=== PATIENT | female | born 2000 | race Caucasian/White ===

== ENCOUNTER 2023-07-23 03:48 | Observation (INO) | payer BC, SELFPAY ==
[2023-07-22 19:14] VITALS: BP 127/63
[2023-07-22 19:38] VITALS: BMI 24.8
[2023-07-22 20:28] LABS: % Basophils 0.7 % (0-2); % Eosinophils 1.7 % (0-6); % Immature Granulocytes 0.3 % (0-0.5); % Lymphocytes 20.7 % (20.5-51.1); % Monocytes 6.6 % (1.7-9.3); Absolute Basophils 0.1 10^3/uL (0-0.2); Absolute Eosinophils 0.2 10^3/uL (0-0.7); Absolute Lymphocytes 1.8 10^3/uL (1.2-3.4); Absolute Monocytes 0.6 10^3/uL (0.1-0.6); Absolute Neutrophils 6.1 10^3/uL (1.4-6.5); Hematocrit 42.5 % (37.0-47.0); Mean Corp Hgb Conc. 35.3 g/dL (33.0-37.0); Mean Corpuscular Hgb 30.4 pg (27.0-31.0); Mean Platelet Volume 9.7 fL (7.4-10.4); Nucleated Red Blood Cells % 0 %; Platelet Count 262 10^3/uL (130-400); Red Blood Cell Count 4.94 10^6/uL (4.20-5.40); Red Cell Dist. Width 12.7 % (11.5-14.5); White Blood Cell Count 8.7 10^3/uL (4.8-10.8)
[2023-07-22 20:28] LABS: Urine Albumin Negative (Neg - Trace); Urine Bilirubin Negative (Negative); Urine Character Clear (Clear); Urine Color Yellow; Urine Glucose Negative (Negative); Urine Ketone 1+ (Negative); Urine Leukocyte Negative (Negative); Urine Nitrite Negative (Negative); Urine Occult Blood Negative (Negative); Urine Specific Gravity 1.015 (<1.030); Urine Urobilinogen Negative (Neg - 1+)
--- NOTE | 2023-07-22 20:28 | ED.GENMED ---
History of Present Illness
<PHILIP Mancilla - Last Filed: 07/23/23 03:20>
General
Chief Complaint: Abdominal Symptoms
Source: patient
Exam Limitations: none
Time Seen by Provider: 07/22/23 20:02
Travel History
Have you had any contact with someone who has COVID-19?: No
Do you have any symptoms of coronavirus? Fever > 100 degrees, chills, cough, shortness of breath, sore throat, loss of taste or smell, muscle aches, or headache?: No
History of Present Illness
History of Present Illness:
This is a 23 year old female that comes in with c/o lower abd pain. States that about a half hour before she arrived at the ER she started with this cramping pain in the lower abd. States that she couldn't walk and stand up straight. State that the
pain is also in the low back. State that the pain is on the right lower abd. States that she did a home test yesterday and this was positive. State that her last Menstrual cycle was the week of June 11. State that she was a little
nauseated with the pain. States that she does have some pressure when she urinates. Denies any fever, chills, chest pain, SOB, vomiting, diarrhea, headache, dizziness.
Past History
<PHILIP Mancilla - Last Filed: 07/23/23 03:20>
Past History
ED Past Medical History: Other (Ovarian cyst)
ED Past Surgical History: Orthopedic (Left arm surgery)
Social History
Tobacco: Non-smoker
Alcohol: Occasional
Personal: Single
Living: with family
Review of Systems
<PHILIP Mancilla - Last Filed: 07/23/23 03:20>
Review of Systems
All Other Systems: ROS reviewed and negative except as documented in HPI and ROS
Constitutional: Reports no symptoms; Denies fever or chills
EENT: Reports no symptoms
Respiratory: Reports no symptoms; Denies cough or trouble breathing
Cardiac: Reports no symptoms; Denies chest pain
ABD/GI: Reports abdominal pain and nausea; Denies vomiting or diarrhea
: Reports other (Pressure with urination); Denies frequency or flank pain
Musculoskeletal: Reports no symptoms
Skin: Reports no symptoms
Neurological: Reports no symptoms; Denies dizzy or headache
Psychiatric: Reports no symptoms
Phy Exam
<PHILIP Mancilla - Last Filed: 07/23/23 03:20>
General Physical Exam
General Presentation: well appearing and no apparent distress
General age: appears stated age
General Skin: warm and dry
General Habitus: normal
General Mental: alert
General Hydration: appears well hydrated
ENT Exam
ENT Exam: TM's normal, pharynx normal and neck supple
Eye Exam
Eye Exam: EOMI
Cardiovascular Exam
Cardiovascular Exam: regular rate/rhythm, no edema, no murmur and normal peripheral pulses
Pulmonary Exam
Pulmonary Exam: lungs clear, no respiratory distress, no rales, chest non tender, no crackles, no rhonchi, no wheezing and no cough
Gastrointestinal Exam
Gastrointestinal Exam: normal bowel sounds, soft, no organomegaly, no pulsatile mass, non distended and tender (Right Lower abd tenderness with palpation)
Musculoskeletal Exam
Musculoskeletal Exam: full ROM and no edema
Skin Exam
Skin Exam: normal color, warm/dry, no rash and no petechia
Psychiatric Exam
Psychiatric Exam: normal mood/affect
Course
<PHILIP Mancilla - Last Filed: 07/23/23 03:20>
Orders/Labs/Results
Orders:
Orders
07/22/23 20:06
Beta HCG Quantitative Urgent
Is this a screen?: No
Complete Blood Count/With Diff Urgent
Comprehensive Metabolic Panel Urgent
07/22/23 20:17
Urinalysis Reflex To Culture Urgent
Date Specimen was Collected: 07/22/23
Time Specimen was Collected: 20:16
07/22/23 20:27
0.9% Sodium Chloride 1000 ml [Nss] 1,000 ml IV BOLUS
US Abdomen - Appendix Only Urgent
Comment:
Reason For Exam: right lower abd pain
US W Transvaginal Urgent
Comment: last Mentral cycle June 11
Reason For Exam: right lower abd pain
07/22/23 22:48
Blood Group&Type Urgent
07/22/23 23:12
Morphine Sulfate 2 mg IV NOW STA
07/22/23 23:19
CeFAZolin 2 GRAM [Ancef] 2 grams in 10 ml IV PRE PROCEDURE
07/22/23 23:20
Compression Sleeves [Pneumatic Compression Sleeves] As Directed
Type: Knee high
07/22/23 23:21
DX Deep Vein Thrombosis Video Routine
07/22/23 23:24
Dexamethasone Sod Phosphate [Decadron] 20 mg .ROUTE .STK-MED ONE
Fentanyl Citrate/Pf [Sublimaze] 100 mcg .ROUTE .STK-MED ONE
Lidocaine 2% Mpf [Xylocaine Mpf 2%] 100 mg .ROUTE .STK-MED ONE
Midazolam HCl [Versed] 2 mg .ROUTE .STK-MED ONE
Ondansetron Injectable [Zofran] 4 mg .ROUTE .STK-MED ONE
Propofol [Diprivan] 20 ml .ROUTE .STK-MED
Rocuronium [place] [Rocuronium] 50 mg .ROUTE .STK-MED ONE
07/22/23 23:35
HYDROmorphone [Dilaudid] 0.25 mg IV PACU-Q5MPRN PRN
HYDROmorphone [Dilaudid] 0.5 mg IV PACU-Q5MPRN PRN
Meperidine [Demerol] 12.5 mg IV PACU-Q5MPRN PRN
Ondansetron Injectable [Zofran] 4 mg IV PACU-ONCEPRN PRN
Prochlorperazine [Compazine] 5 mg IV PACU-ONCEPRN PRN
Notify MD As Directed
Notify physician if: for SDS patients with known or suspected sleep obstructive sleep apnea, monitor in the
PACU.
Notify MD for any apneic/desaturation episodes
O2 Therapy [RESP] Urgent
Titrate/Wean O2 to maintain O2 sat greater than (%): 92
Special Instructions: -Provide supplemental oxygen to achieve O2 sat of 92% or greater.
-After 15 min, may wean O2 and discontinue if patient is able to maintain O2 sat of 92%
or greater during recovery period.
If patient is a discharge home, without oxygen therapy, notify anestheiologist if
unable to maintain O2 SAT of 92% or greater on room air for MD clearance.
07/22/23 23:45
Normosol (Mult Electrolytes) [Normosol-R] 1,000 ml IV PER PROTOCOL
07/23/23 00:07
Bupivacaine Pf 0.5% [Sensorcaine 0.5% Single Dose] 30 ml .ROUTE .STK-MED ONE
07/23/23 01:00
Phenylephrine HCl/0.9% NaCl [Giorgio-Synephrine] 1,000 mcg .ROUTE .STK-MED ONE
07/23/23 01:10
HYDROmorphone [Dilaudid] 1 mg .ROUTE .STK-MED ONE
07/23/23 02:04
Sugammadex Sodium [Bridion] 200 mg .ROUTE .STK-MED ONE
07/23/23 02:10
OR Pathology Routine
Pre-Operative Diagnosis: ABDOMINAL PAIN, SUSPECTED ECTOPIC
Operative Procedure: Diagnostic Laparoscopy, Cauterization of Ruptured Ovarian Cyst
Surgeon: Ana Cristina
Circulating Nurse: Mikhail
Specimen Type: Contents of Ruptured Right Ovarian Cyst, Possible POC
07/23/23 02:59
Admit Patient As Directed
Co-Sign Provider:
Level of Care: Observation services
Assign to:: Medical/Surgical
Physician / Group: [facility] [employer] EQUIPMENT OPERATOR
Diagnosis: s/p LPS for ruptured hemorrhagic cyst
Patient Condition: Good
Reason for Hospitalization: surgery
Oxycodone/Acetaminophen [Percocet 5/325] 1 tablet PO Q4HPRN PRN
07/23/23 03:00
Activity As Directed
Activity Level: Ambulate
Bathroom Privileges
Activity Frequency: Ad Fidelina
07/23/23 Breakfast
Regular
Abnormal Lab Results
07/22/23 07/22/23
20:06 20:17
Sodium 134 L mmol/L
(135-145)
Urine Ketones 1+ A
(Negative)
07/22/23 20:06
07/22/23 20:06
Labs unremarkable. HCG 2061.10, Urine negative for infection.
Vital Signs
Initial and Last Documented VS:
Initial Vital Signs
Temp Pulse Resp BP Pulse Ox
98.1 F 93 18 127/63 99
07/22/23 19:14 07/22/23 19:14 07/22/23 19:14 07/22/23 19:14 07/22/23 19:14
Last Documented Vital Signs
Temp Pulse Resp BP Pulse Ox
99.3 F 88 17 119/56 100
07/23/23 02:40 07/23/23 02:55 07/23/23 02:55 07/23/23 02:55 07/23/23 03:10
ovidio;Manjinder Tovar DO - Last Filed: 07/23/23 00:24>
Orders/Labs/Results
Orders:
Orders
07/22/23 20:06
Beta HCG Quantitative Urgent
Is this a screen?: No
Complete Blood Count/With Diff Urgent
Comprehensive Metabolic Panel Urgent
07/22/23 20:17
Urinalysis Reflex To Culture Urgent
Date Specimen was Collected: 07/22/23
Time Specimen was Collected: 20:16
07/22/23 20:27
0.9% Sodium Chloride 1000 ml [Nss] 1,000 ml IV BOLUS
US Abdomen - Appendix Only Urgent
Comment:
Reason For Exam: right lower abd pain
US W Transvaginal Urgent
Comment: last Mentral cycle June 11
Reason For Exam: right lower abd pain
07/22/23 22:48
Blood Group&Type Urgent
07/22/23 23:12
Morphine Sulfate 2 mg IV NOW STA
07/22/23 23:19
CeFAZolin 2 GRAM [Ancef] 2 grams in 10 ml IV PRE PROCEDURE
07/22/23 23:20
Compression Sleeves [Pneumatic Compression Sleeves] As Directed
Type: Knee high
07/22/23 23:21
DX Deep Vein Thrombosis Video Routine
07/22/23 23:24
Dexamethasone Sod Phosphate [Decadron] 20 mg .ROUTE .STK-MED ONE
Fentanyl Citrate/Pf [Sublimaze] 100 mcg .ROUTE .STK-MED ONE
Lidocaine 2% Mpf [Xylocaine Mpf 2%] 100 mg .ROUTE .STK-MED ONE
Midazolam HCl [Versed] 2 mg .ROUTE .STK-MED ONE
Ondansetron Injectable [Zofran] 4 mg .ROUTE .STK-MED ONE
Propofol [Diprivan] 20 ml .ROUTE .STK-MED
Rocuronium [place] [Rocuronium] 50 mg .ROUTE .STK-MED ONE
07/22/23 23:35
HYDROmorphone [Dilaudid] 0.25 mg IV PACU-Q5MPRN PRN
HYDROmorphone [Dilaudid] 0.5 mg IV PACU-Q5MPRN PRN
Meperidine [Demerol] 12.5 mg IV PACU-Q5MPRN PRN
Ondansetron Injectable [Zofran] 4 mg IV PACU-ONCEPRN PRN
Prochlorperazine [Compazine] 5 mg IV PACU-ONCEPRN PRN
Notify MD As Directed
Notify physician if: for SDS patients with known or suspected sleep obstructive sleep apnea, monitor in the
PACU.
Notify MD for any apneic/desaturation episodes
O2 Therapy [RESP] Urgent
Titrate/Wean O2 to maintain O2 sat greater than (%): 92
Special Instructions: -Provide supplemental oxygen to achieve O2 sat of 92% or greater.
-After 15 min, may wean O2 and discontinue if patient is able to maintain O2 sat of 92%
or greater during recovery period.
If patient is a discharge home, without oxygen therapy, notify anestheiologist if
unable to maintain O2 SAT of 92% or greater on room air for MD clearance.
07/22/23 23:45
Normosol (Mult Electrolytes) [Normosol-R] 1,000 ml IV PER PROTOCOL
07/23/23 00:07
Bupivacaine Pf 0.5% [Sensorcaine 0.5% Single Dose] 30 ml .ROUTE .STK-MED ONE
07/23/23 01:00
Phenylephrine HCl/0.9% NaCl [Giorgio-Synephrine] 1,000 mcg .ROUTE .STK-MED ONE
07/23/23 01:10
HYDROmorphone [Dilaudid] 1 mg .ROUTE .STK-MED ONE
07/23/23 02:04
Sugammadex Sodium [Bridion] 200 mg .ROUTE .STK-MED ONE
07/23/23 02:10
OR Pathology Routine
Pre-Operative Diagnosis: ABDOMINAL PAIN, SUSPECTED ECTOPIC
Operative Procedure: Diagnostic Laparoscopy, Cauterization of Ruptured Ovarian Cyst
Surgeon: Ana Cristina
Circulating Nurse: Mikhail
Specimen Type: Contents of Ruptured Right Ovarian Cyst, Possible POC
07/23/23 02:59
Admit Patient As Directed
Co-Sign Provider:
Level of Care: Observation services
Assign to:: Medical/Surgical
Physician / Group: [facility] [employer] EQUIPMENT OPERATOR
Diagnosis: s/p LPS for ruptured hemorrhagic cyst
Patient Condition: Good
Reason for Hospitalization: surgery
Oxycodone/Acetaminophen [Percocet 5/325] 1 tablet PO Q4HPRN PRN
07/23/23 03:00
Activity As Directed
Activity Level: Ambulate
Bathroom Privileges
Activity Frequency: Ad Fidelina
07/23/23 Breakfast
Regular
Abnormal Lab Results
07/22/23 07/22/23
20:06 20:17
Sodium 134 L mmol/L
(135-145)
Urine Ketones 1+ A
(Negative)
07/22/23 20:06
07/22/23 20:06
Vital Signs
Initial and Last Documented VS:
Initial Vital Signs
Temp Pulse Resp BP Pulse Ox
98.1 F 93 18 127/63 99
07/22/23 19:14 07/22/23 19:14 07/22/23 19:14 07/22/23 19:14 07/22/23 19:14
Last Documented Vital Signs
Temp Pulse Resp BP Pulse Ox
99.3 F 88 17 119/56 100
07/23/23 02:40 07/23/23 02:55 07/23/23 02:55 07/23/23 02:55 07/23/23 03:10
<PHILIP Mancilla - Last Filed: 07/23/23 03:20>
MDM/Problems Addressed
Differential Diagnosis Includes:
Apendicitis. Tubal , Ovarian cyst
MDM/Problems Addressed:
This is a 23 year old female that comes in with c/o lower abd pain. States that this started about a half hour before they got here. States that she was unable to stand up straight to walk due to the pain. Patient did a home test yesterday
and found that she was .
Will get labs, US appendix and Pelvic Ultrasounds. Will give IV fluids to fill.
Back into see patient. Explained that her US shows a possible ruptured Ectopic . Message sent to Dr. De La Paz.
Dr. De La Paz here to see patient.
Chronic conditions affecting care:
history of ovarian cyst
Acute Exacerbation and/or Progression of Chronic Illness:
NA
<PHILIP Mancilla - Last Filed: 07/23/23 03:20>
*Radiology
Radiology exam reviewed: radiology read reviewed (US-Complex structure in the right adnexa adjacent to the right ovary is considered suspicious for a tubal ectopic in the setting of a positive beta HCG. Mild complex free fluid in the pelvis which
raise concern for a ruptured ectopic. Tiny hypoechoic focus in the endometrium, but no evidence for an ) and other (US cont- intrauterine gestational sac. US appendix-The appendix is not visualized on this exam. Mild free fluid in the right lower
quadrant. )
*Pulse Oximetry
Patient hypoxic: no
*EKG
Interpreted by ED Provider?: NA
Rate: EKG- N/A
*Powder Coater Interpretation
Rate: Powder Coater- N/A
*Critical Care Note
Total Time (30-74mins, 75-104mins- exclusive of procedures): Not Applicable
ED Attending Note
<PHILIP Mancilla - Last Filed: 07/23/23 03:20>
-
Portions of this chart may have been created with voice recognition software.� Occasional wrong word or��sound alike� substitutions may have occurred due to the inherent limitations of voice recognition software.
<Manjinder Tovar, - Last Filed: 07/23/23 00:24>
ED Attending Note
Patient seen and examined by attending physician: Yes
I performed the substantive portion of visit, reviewed & personally made and approve the management plan that is documented in note by myself or KIT.: Yes
ED Attending Note:
I agree with Leslie's note.
Pt with abd pain. PT did have a + home test.
+ tender to palpation.
Quant 2060.
u/s shows complex structure adjacent to the right ovary with some free fluid.
Labs/us concerning for ectopic with bleeding. H[employer] FORMING EQUIPMENT OPERATOR on-call contacted by Leslie. Pt is hemodynamically stable.
Dr. De La Paz he will take the patient to the operating room.
Discharge Plan
Departure
Patient Disposition: OR
Date of Disposition: 07/22/23
Time of Disposition: 23:10
Presentation/result/management discussed w/ accepting MD/DO: Dr. De La Paz
Patient with high blood pressure during this ER visit?: No
Condition: Good
Covid-19: Not Applicable
Discharge Problem:
Ruptured ectopic
Prescriptions:
No Action
No Current Medications
0
Referrals:
Lusí Montana MD [Family Provider] -
Interventions
Interventions:
*Risk Screen - Suicide Last Done: 07/22/23 19:14
*General Assessment Last Done: 07/22/23 19:14
*Neglect/Abuse Screening Last Done: 07/22/23 19:14
ED- Fall Risk Assessment Last Done: 07/22/23 19:28
*ED COVID-19 Vaccine History Last Done: 07/22/23 19:28
*Nursing Disposition Last Done: 07/23/23 00:02
CJ-Lppebr-Hgyykhnsnk Assessment Last Done: 07/22/23 19:28
Discharge Date and Time
Discharge Date/Time: 07/23/23 00:02
Print Language: NEPALESE
[2023-07-22 20:46] LABS: ALT (SGPT) 14 U/L (0-35); AST (SGOT) 24 U/L (14-36); Albumin 4.7 g/dl (3.5-5.0); Alkaline Phosphatase 62 U/L (38-126); Blood Urea Nitrogen 10 mg/dl (7-17); Calcium 9.9 mg/dl (8.4-10.2); Carbon Dioxide 26 mmol/L (22-30); Chloride 103 mmol/L (98-107); Estimated Creatinine Clearance 91 ml/min; Glucose 97 mg/dl (70-99); Potassium 3.9 mmol/L (3.5-5.1); Sodium 134 mmol/L (135-145); Total Bilirubin 0.6 mg/dl (0.2-1.3); Total Protein 7.6 g/dl (6.3-8.2); eGFR > 60.00
[2023-07-22] MEDS: NSS 1000 IV (20:47)
[2023-07-22 22:58] VITALS: BP 120/72
[2023-07-22] MEDS: MORPHINE SULFATE 2 MG IV (23:17)
[2023-07-23] VITALS (9 sets, daily range): BP systolic 101–121; BP diastolic 54–72; BMI 24.4
[2023-07-23] MEDS: PERCOCET 5/325 1 TABLET PO ×2 (04:54→09:37)
--- NOTE | 2023-07-23 05:56 | PTCARENOTE ---
[facility] 0340 pt arrived from PACU with 2 RN'S. Vitals stable. Pt with minimal cramping to abdominal area where she 3 punctures sites with steri strips. Admission and assessment done. Pt instructed to ring for assistance.
--- NOTE | 2023-07-23 05:59 | PTCARENOTE ---
Pt given percocet as she was having 7/10 abdominal pain. Pt drank some siri steff and had a cracker with it as she hasn't eaten since 3pm.
--- NOTE | 2023-07-23 09:58 | W.PN.UPDATE ---
Update Note
Progress Note Update
Phone call to pt - doing well - AFVSS
Has appt tomorrow in our office for f/u at 9:30 am
Rx for pain meds sent from our office system
Will d/c to home today
--- NOTE | 2023-07-23 10:02 | W.DS.TRANS ---
DC Summary - [facility] Records Management Officer
-
Discharge Instructions:
Discharge Diagnosis/Procedures Operative LPS = fulgeration of bleeding ovarian
cyst - + hemoperitoneum
Diet No restrictions
Activity No strenuous activity
Additional Activity Pelvic rest - nothing in vagina
Driving Restrictions Not until seen by your Dr
Bathing Restrictions OK to Shower
Instructions:
Stand-Alone Forms:
Changes to Home Medications: No
Discharge Medications:
DC Medications w/original date entered in [employer]
No Meds [No Current Medications] 06/22/21
Home Medication Changes
Pending Results: No
--- NOTE | 2023-07-23 10:35 | CM ---
CM met with pt and her SO bedside
Pt resides with her parents in a 2[address] with 1 [address]
Discharge order notd
No dc needs noted
Pt is OBS- OBS form verbally completed
Copy provided
Discharge Disposition- home no needs- family transport
== END 2023-07-23 13:28 | disposition home or self-care (01) ==
LOC: 2 SOUTH 03:48
PROVIDERS: Clinical Nurse Specialist Family Health; ADMITTING PHYSICIAN Obstetrics & Gynecology Gynecology; EMERGENCY PHYSICIAN Emergency Medicine; FAMILY PHYSICIAN Internal Medicine
DX: N83.201 Unspecified ovarian cyst, right side (principal); K66.1 Hemoperitoneum; R10.9 Unspecified abdominal pain; M54.50 Low back pain, unspecified; R11.0 Nausea; R10.31 Right lower quadrant pain
CPT/HCPCS: 58662; 88305; 76705; 76801; 76817; 80053; 81003; 84702; 85025; 86900; 86901; 96361; 96374; 99285; G0378

== ENCOUNTER → 2023-07-24 10:57 | Outpatient (REF) | payer BC, SELFPAY ==
[2023-07-24 12:32] LABS: % Basophils 0.9 % (0-2); % Eosinophils 0.8 % (0-6); % Immature Granulocytes 1.4 % (0-0.5); % Lymphocytes 21.2 % (20.5-51.1); % Monocytes 7.2 % (1.7-9.3); % Neutrophils 68.5 % (42.2-75.2); Absolute Basophils 0.1 10^3/uL (0-0.2); Absolute Eosinophils 0.1 10^3/uL (0-0.7); Absolute Immature Granulocytes 0.1 10^3/uL (0-0.05); Absolute Lymphocytes 1.8 10^3/uL (1.2-3.4); Absolute Monocytes 0.6 10^3/uL (0.1-0.6); Absolute Neutrophils 5.9 10^3/uL (1.4-6.5); Hematocrit 39.8 % (37.0-47.0); Hemoglobin 12.8 g/dL (12.0-16.0); Mean Corp Hgb Conc. 32.2 g/dL (33.0-37.0); Mean Corpuscular Volume 93.2 fL (81.0-99.0); Mean Platelet Volume 10.6 fL (7.4-10.4); Nucleated Red Blood Cells % 0 %; Platelet Count 235 10^3/uL (130-400); Red Blood Cell Count 4.27 10^6/uL (4.20-5.40); Red Cell Dist. Width 13.3 % (11.5-14.5); White Blood Cell Count 8.6 10^3/uL (4.8-10.8)
== END ==
LOC: REG 10:57
PROVIDERS: ATTENDING PHYSICIAN Obstetrics & Gynecology Gynecology; FAMILY PHYSICIAN Internal Medicine
DX: O03.9 Complete or unspecified spontaneous abortion without complication (principal); Z09 Encounter for follow-up examination after completed treatment for conditions other than malignant neoplasm
CPT/HCPCS: 36415; 84702; 85025

== ENCOUNTER → 2023-07-26 11:24 | Outpatient (REF) | payer BC, SELFPAY | LOC: REG 11:24 | PROVIDERS: ATTENDING PHYSICIAN Obstetrics & Gynecology Gynecology | DX: O03.9 Complete or unspecified spontaneous abortion without complication (principal) | CPT/HCPCS: 36415; 84702 ==

== ENCOUNTER → 2023-07-27 10:38 | Outpatient (REF) | payer BC, SELFPAY | LOC: RAD 10:38 | PROVIDERS: ATTENDING PHYSICIAN Obstetrics & Gynecology Gynecology; FAMILY PHYSICIAN Internal Medicine | DX: O20.0 Threatened abortion (principal) | CPT/HCPCS: 76801; 76817 ==

== ENCOUNTER → 2023-08-22 08:49 | Outpatient (REF) | payer BC, SELFPAY | LOC: HWRAD 08:49 | PROVIDERS: ATTENDING PHYSICIAN Obstetrics & Gynecology Gynecology; FAMILY PHYSICIAN Internal Medicine | DX: O20.0 Threatened abortion (principal) | CPT/HCPCS: 76801 ==